=== PATIENT | male | born 1995 | race Two or more races ===

== ENCOUNTER 2017-09-09 17:09 | Emergency (ER) | payer MEDICAID ==
[~2017-09-09] VITALS: Ht 165.1 cm; Wt 65.8 kg
[2017-09-09 17:20] VITALS: BP 126/70
== END 2017-09-09 17:59 | disposition home or self-care (01) ==
LOC: ER 17:10
DX: S90.112A Contusion of left great toe without damage to nail, initial encounter (principal); W21.02XA Struck by soccer ball, initial encounter; Y93.66 Activity, soccer; Y92.89 Other specified places as the place of occurrence of the external cause; Y99.8 Other external cause status
CPT/HCPCS: 99281; A4606; Z7610; Z7502

== ENCOUNTER 2018-08-04 13:07 | Emergency (ER) | payer SELFPAY ==
[~2018-08-04] VITALS: Ht 165.1 cm; Wt 70.3 kg
[2018-08-04 13:49] VITALS: BP 149/95
--- NOTE | 2018-08-04 14:14 | NUR ---
For Discharge [facility] given verbalized understanding home ambulatory Stable No obvious distress
== END 2018-08-04 14:16 | disposition home or self-care (01) ==
LOC: ER 13:12
DX: S16.1XXA Strain of muscle, fascia and tendon at neck level, initial encounter (principal); M54.5 Low back pain; V43.52XA Car driver injured in collision with other type car in traffic accident, initial encounter; Y93.89 Activity, other specified; Y92.413 State road as the place of occurrence of the external cause; Y99.8 Other external cause status